=== PATIENT | male | born 1975 | race Caucasian/White ===

== ENCOUNTER 2022-03-02 17:48 | Emergency (ER) | payer SELFPAY ==
[~2022-03-02] VITALS: Ht 185 cm; Wt 85.0 kg
[2022-03-02] MEDS ORDERED: predniSONE 20 MG TAB PO ONE (18:00)
[2022-03-02] MEDS ORDERED: RT-ALBUTEROL/IPRATROPIUM 3 ML (DUONEB) VIAL INH ONE (18:00)
--- NOTE | 2022-03-02 18:00 | ED Dyspnea ---
General Stated Complaint: SOB Source of Information: Patient Exam Limitations: No Limitations History of Present Illness Date Seen by Provider: Mar 02, 2022 Time Seen by Provider: 17:45 Initial Comments 46-year-old male presents the emergency department for shortness of breath. He states he was cleaning out a duct earlier today that was quite darek. He has had shortness of breath since that time. Does have a history of asthma. He ran out of his rescue inhaler about 2 months ago. He does not see the doctor on a regular basis and has not had this refilled in several years. Denies any fevers or chills. No nausea or vomiting. No chest pain or abdominal pain. No changes in bowel or bladder habits. He states he feels as though if he took a puff of his rescue inhaler that he can get through. Allergies and Home Medications Allergies Coded Allergies: No Known Drug Allergies (Unverified , 03/02/22) Patient Home Medication List Home Medication List Reviewed: Yes Review of Systems Review of Systems Constitutional: no symptoms reported EENTM: no symptoms reported Respiratory: short of breath Cardiovascular: no symptoms reported Gastrointestinal: no symptoms reported Genitourinary: no symptoms reported Musculoskeletal: no symptoms reported Skin: no symptoms reported Psychiatric/Neurological: No Symptoms Reported Endocrine: No Symptoms Reported Hematologic/Lymphatic: No Symptoms Reported Past Oofnkea-Sjaeun-Jkiswe Hx Patient Social History Tobacco Use?: Yes Use of E-Cig and/or Vaping dev: No Substance use?: No Alcohol Use?: No Family Medical History Reviewed Nursing Family Hx No Pertinent Family Hx Physical Exam Vital Signs Vital Signs - First Documented 03/02/22 18:12 Temp 36.2 Pulse 102 Resp 20 B/P (MAP) 158/104 (122) Pulse Ox 99 O2 Delivery Room Air Capillary Refill : Height, Weight, BMI Height: '" Weight: lbs. oz. kg; BMI Method: General Appearance: No Apparent Distress, WD/WN HEENT: Normal ENT Inspection, Pharynx Normal Neck: Normal Inspection, Non Tender, Supple Respiratory: Chest Non Tender, No Respiratory Distress, Wheezing (Inspiratory and expiratory wheezing bilaterally.) Cardiovascular: No Edema, No Gallop, No JVD, No Murmur, Normal Peripheral Pulses, Tachycardia Gastrointestinal: Normal Bowel Sounds, No Organomegaly, No Pulsatile Mass, Non Tender, Soft Extremity: Normal Capillary Refill, Normal Inspection, Normal Range of Motion, Non Tender, No Calf Tenderness Neurologic/Psychiatric: Alert, Oriented x3, No Motor/Sensory Deficits, Normal Mood/Affect Skin: Normal Color, Warm/Dry Lymphatic: No Adenopathy Progress/Results/Core Measures Results/Orders My Orders Orders - DEB AMARAL DO Albuterol/Ipra Inhalation Soln (Duoneb I (03/02/22 18:00) Prednisone Tablet (Deltasone Tablet) (03/02/22 18:00) Svn Small Volume Nebulizer (03/02/22 17:56) Chest Pa/Lat (2 View) (03/02/22 18:26) Medications Given in ED Vital Signs/I&O 03/02/22 03/02/22 18:12 19:00 Temp 36.2 36.2 Pulse 102 102 Resp 20 20 B/P (MAP) 158/104 (122) 158/104 Pulse Ox 99 99 O2 Delivery Room Air Room Air Departure Communication (Admissions) Patient is hemodynamically stable. His lungs are clear on chest x-ray. He is wheezing significantly on exam on arrival. Improved after breathing treatment, now completely resolved. He is given written prescription for rescue inhaler and prednisone at his request as he is going out of town will likely have to fill them in another city. He is discharged in stable condition with supportive care and close follow-up. Impression Primary Impression: Bronchitis Additional Impression: Asthma exacerbation Qualified Codes: J45.21 - Mild intermittent asthma with (acute) exacerbation Disposition: 01 HOME, SELF-CARE Condition: Stable Departure-Patient Inst. Referrals: LUCINDA GUTIERREZ DO Patient Instructions: Asthma, Adult (DC) Add. Discharge Instructions: As prescribed daily until its gone. Use her rescue inhaler as needed every 3 hours for wheezing. Return to the emergency department for any severe concerns. Follow-up with your primary doctor in the next 48 hours should your symptoms not improved. DEB AMARAL DO Mar 02, 2022 18:00
--- NOTE | 2022-03-02 18:40 | Diagnostic Imaging Report ---
INDICATION: Shortness of air, decreased breath sounds. FINDINGS: There is some right upper lobe volume loss and pleural-parenchymal opacities, likely owing to scarring with some ipsilateral deviation of the lower thoracic trachea and mild elevation of the right hilum. This is presumed chronic. An acute-appearing infiltrate is not found and there is no failure, effusion, or pneumothorax. Some flattening of the diaphragms and symmetrical air trapping noted, chronic. There are postsurgical changes to the right superior pulmonary hilar region as well as an old rib resection. IMPRESSION: Postsurgical changes and likely chronic scarring and volume loss at the right apex present. No findings suggestive of acute pneumonia, failure, or pleural fluid. No pneumothorax. Dictated by: Dictated on workstation # [id number]
[2022-03-02 19:00] VITALS: BP 158/104
== END 2022-03-02 19:02 | disposition home or self-care (01) ==
LOC: ER FS 17:49
DX: J45.901 Unspecified asthma with (acute) exacerbation (principal); Z72.0 Tobacco use; Z28.310 Unvaccinated for COVID-19
CPT/HCPCS: 71046; 94640